=== PATIENT | female | born 1950 | race Caucasian/White ===

== ENCOUNTER 2021-10-11 14:16 | Outpatient (AMBR) | payer OTHER, SELFPAY ==
--- NOTE | 2021-10-11 14:26 | PT.ODS1RPT ---
PT OP Progress/Discharge Note Date of Service: 10/11/21 Progress Note/DC Note Progress Note/Discharge Note: DC Note Patient Information Visit Reasons: post op knee Medical Diagnosis: M25.561; M17.11 Treatment Dx #1: Right Knee Mobility Deficits Treatment Dx #2: Right Knee Weakness Service Continue Service or Discharge: Discharge Discharge Date: 10/11/21 Status Subjective: Pt mention that her knee is good and does not have concerns. Pt has been able to walk 16 hrs shift, walk, stand, and perform normal ADLs without limitation. Pt still notice mild swelling around the knee but has been using ice to help manage. Objective: Right Knee AROM: - 7 deg to 115 deg Right Knee PROM: -5 deg to 120 deg Right Knee MMTs: grossly 4/5 Right Hip MMTs: grossly 3+/5 SLS: 10 sec Assessment: Pt demonstrate functional knee ROM and strength allowing her to resume ADLs, work duties, ambulate, and perform recreational activities with minimal limitation. Pt met goals in therapy and will no longer benefit from physical therapy. Pt was instructed on HEP last session and educated to continue exercises to maintain overall mobility. Pt performed all exercises safely, thank you for your referrals. Plan: D/C home with HEP Office Procedures PT Treatments PT Date of Service: 10/11/21 Therapeutic Exercise 30 minutes: Yes
== END 2021-11-09 23:59 | disposition home or self-care (01) ==
PROVIDERS: PCP Physician Assistant; Referring Provider Physician Assistant; Visit Provider Physician Assistant
DX: M25.561 Pain in right knee (principal); M17.11 Unilateral primary osteoarthritis, right knee; R53.1 Weakness; R26.2 Difficulty in walking, not elsewhere classified
CPT/HCPCS: 97110

== ENCOUNTER → 2024-10-12 | Outpatient (CLI) | payer OTHER, SELFPAY ==
--- NOTE | 2024-10-12 12:49 | XR_ITS ---
Examination: PA lateral chest 2 views TECHNIQUE: Upright PA lateral chest 2 views Exam date and time: October 12, 2024 1404 hours Comparison September 12, 2022 INDICATIONS: Acute coughing 2 months, treated with antibiotic therapy FINDINGS: Accentuation basilar bronchovascular markings Normal heart size No lobar pneumonia Prominent osteopenia IMPRESSION: Basilar bronchitis pattern
== END | disposition home or self-care (01) ==
LOC: COPL 12:25 → CDIM 11-01 10:09
PROVIDERS: PCP Physician Assistant; Referring Provider Nurse Practitioner Family; Visit Provider Nurse Practitioner Family
DX: R05.1 Acute cough (principal)
CPT/HCPCS: 71046

== ENCOUNTER → 2025-02-17 | Outpatient (BNVA) | payer OTHER, SELFPAY | END | disposition home or self-care (01) | PROVIDERS: PCP Family Medicine; Referring Provider Family Medicine; Visit Provider Urology | DX: N13.2 Hydronephrosis with renal and ureteral calculous obstruction (principal); N18.2 Chronic kidney disease, stage 2 (mild); Z86.711 Personal history of pulmonary embolism | CPT/HCPCS: 81003; 99212; G0463 ==

== ENCOUNTER → 2025-03-24 | Outpatient (CLI) | payer OTHER, SELFPAY ==
--- NOTE | 2025-03-24 09:00 | XR_ITS ---
Examination: Retroperitoneal ultrasound, complete Technique: Multiple high resolution grayscale images of the retroperitoneum obtained, including kidneys and bladder. Exam date and time:March 24, 2025 0855 hours Comparison March 11, 2024 INDICATIONS: History flank pain, minimal right hydronephrosis 2 mm proximal right ureteral calculus on CT stone study August 24, 2024 FINDINGS: Right kidney 9.3 cm cortex 1.4 cm Minimal right hydronephrosis 6 mm upper pole calculus Left kidney 9.7 cm cortex 1.7 cm Multiple calculi, the largest in the mid kidney 7 mm Minimal hydronephrosis Contracted urinary bladder IMPRESSION: Bilateral renal calculi Minimal bilateral hydronephrosis, consider repeat CT stone study follow-up
== END | disposition home or self-care (01) ==
LOC: CDIM 08:44
PROVIDERS: PCP Family Medicine; Referring Provider Urology; Visit Provider Urology
DX: N20.0 Calculus of kidney (principal); N13.30 Unspecified hydronephrosis
CPT/HCPCS: 76770

== ENCOUNTER → 2025-08-19 | Outpatient (BNVA) | payer OTHER, SELFPAY | END | disposition home or self-care (01) | PROVIDERS: PCP Family Medicine; Referring Provider Family Medicine; Visit Provider Urology | DX: N20.0 Calculus of kidney (principal); I10 Essential (primary) hypertension; E66.9 Obesity, unspecified; Z68.31 Body mass index [BMI] 31.0-31.9, adult | CPT/HCPCS: 99212; G0463 ==

== ENCOUNTER → 2025-09-05 | Outpatient (CLI) | payer OTHER, SELFPAY ==
--- NOTE | 2025-09-05 13:30 | XR_ITS ---
Examination: CT abdomen and pelvis without contrast. Coronal 3-D reconstructions. Sagittal 2-D reconstructions. Date and time of exam: September 05, 2025, 1314 hours INDICATIONS: Flank pain 6 months, history of kidney stones COMPARISON: August 24, 2024 CTDI: vol (mGy): 9.87 DLP: (mGycm): 178 Technique: Axial images of the abdomen have been obtained, 3 mm slice thickness Intravenous contrast material has not been administered. Low dose protocols were performed. One or more of the following dose reduction techniques were used; automated exposure control, adjustment of the mA and/or KV according to patient size, use of iterative reconstruction technique. Findings: No focal liver or splenic lesions Suspicious for tiny gallstones No pancreatic mass No renal or ureteral calculi, no hydronephrosis Aortic calcification no aneurysmal dilatation No pericecal inflammatory change Colonic diverticulosis extensive involving the sigmoid colon No diverticulitis No pelvic mass Urinary bladder intact IMPRESSION: Recommend about a biliary sonography to exclude gallstones No current renal or ureteral calculi, no hydronephrosis Prominent colonic diverticulosis, no diverticulitis No bladder mass or bladder calculi
[2025-09-05 15:07] LABS: Alanine Aminotransferase 13 U/L (10-49); Albumin, Serum 4.8 gm/dL (3.4-4.8); Albumin/Globulin Ratio 2.2 (1.2-2.2); Alkaline Phosphatase 81 U/L (46-116); Anion Gap 10 (7-16); Aspartate Amino Transferase 18 U/L (0-34); BUN/Creatinine Ratio 17 Ratio (12-20); Bilirubin,Total 0.4 mg/dL (0.3-1.2); Blood Urea Nitrogen 17 mg/dL (9-23); Calcium 9.8 mg/dL (8.3-10.6); Calcium (Corrected) 9.8 mg/dL (8.5-10.1); Carbon Dioxide 27.0 mMol/L (20.0-31.0); Chloride 104 mMol/L (98-107); Creatinine (Component) 1.0 mg/dL (0.6-1.3); Globulin 2.2 gm/dL (2.3-3.5); Glucose 93 mg/dL (74-106); Osmolality,Calculated 282 (275-295); Potassium 4.9 mMol/L (3.4-5.1); Sodium 141 mMol/L (136-145); Total Protein 7.0 gm/dL (5.7-8.2); eGFR 59 See Note
== END | disposition home or self-care (01) ==
LOC: CCTX 13:01 → COPL 13:27
PROVIDERS: PCP Family Medicine; Referring Provider Urology; Visit Provider Radiology Diagnostic Radiology
DX: K57.30 Diverticulosis of large intestine without perforation or abscess without bleeding (principal); Z01.812 Encounter for preprocedural laboratory examination
CPT/HCPCS: 36415; 74176; 80053